=== PATIENT | female | born 1940 | race Caucasian/White ===

== ENCOUNTER 2016-02-11 10:45 | Emergency (ER) | payer OTHER ==
[~2016-02-11] VITALS: Ht 157.5 cm; Wt 90.7 kg
[~2016-02-11 10:45] MED LIST: ACETAMINOPHEN325 M1 PER TUBE; ACETAMINOPHEN325 M1 PO; ACETAMINOPHEN500 MG PER TUBE; AMBEREN; APAP500 PER TUBE; ATENOLOL 50MG T50 M1 PO; AUGMENTIN 875875 MG PO; BACLOFEN 10MG T10 M1 PER TUBE; BACLOFEN 10MG T10 M1 PO; C-500500 MG PER TUBE; CEFTIN500 MG PO; CIPROFLOXACIN500 M1 PO; CLEOCIN HCL150 MG PER TUBE; COLACE100 MG PO; CRANBERRY 4001 EAC1 PO; CRANBERRY500 M1 PER TUBE; DILANTIN100 MG PO; DITROPAN XL5 M1 PO; DUONEB 2.5-0.5 M3 ML IH; DUONEB 2.5-0.5 M3 ML INH; ECONAZOLE 1% CR30 G1 TP; FLAGYL500 MG PER TUBE; FLUZONE 2045 MCG/010; GUAIFENESIN-DM S5 ML PER TUBE; HYDROCERIN CREA1 JAR; HYDROCERIN CREA1 JAR TOP; IMODIUM ADVANC1 EAC1 PO; KEPPRA 100100 MG/M1 PER TUBE; KEPPRA 500 MG500 M1 PER TUBE; KEPPRA 500 MG500 M1 PO; KEPPRA1000 MG PER TUBE; LEVOTHYROXIN0.025 M1 PG; LEVOTHYROXIN0.025 MG PER TUBE; LEVOTHYROXIN0.025 MG PO; LEVOTHYROXINE0.05 MG PER TUBE; LIORESAL 10 MG10 MG PER TUBE; LISINOPRIL10 MG PO; LOPERAMIDE 2 MG2 M1 PER TUBE; LOPRESSOR 50 MG50 M1 PER TUBE; LOPRESSOR100 MG PO; LOPRESSOR50 PER TUBE; LORATIDINE 10 M10 M1 PER TUBE; MACROBID 100 M100 M2 PO; MERREM1 GM IVPB; METOPROLOL 100100 M1 PO; MILLTRIUM SENI1 EACH PO; MIRALAX17 GM PO; MIRALAX255 GM PO; MOM PER TUBE; MULTI-VITAMIN1 EAC1 PO; MULTIPLE VITAM1 EAC3 PO; MULTIVITAMINS PER TUBE; NEURONTIN 300300 M1 PO; NORVASC 5 MG TAB5 MG PER TUBE; NORVASC5 MG PER TUBE; NYSTATIN 100,0015 G1 TP; OXYBUTYNIN 5 MG5 M1 GT; OXYBUTYNIN 5 MG5 M1 PER TUBE; OXYBUTYNIN 5 MG5 M1 PO; OXYBUTYNIN 5 MG5 M2 PER TUBE; PAXIL10 MG; PERIDEX 0.12%473 M1; PNEUMOVAX25 MCG/0.5; REMERON15 M1 PO; REMERON15 MG PER TUBE; REMERON15 MG PO; ROBITUSSIN100 MG/5 M PO; SENNA CONCENTR8.6 MG PER TUBE; SENNA S TABLET1 EACH PER TUBE; SENNA S TABLET1 EACH PO; SILVADENE20 GM TP; SYNTHROID50 MCG PO; VALIUM5 MG PER TUBE; VANCOMYCIN125 MG/2.1 PER TUBE; VITAMIN C + RO500 MG PO; VITAMIN C120 GM; VITAMIN D 5050000 I1 PO; VITAMINC500 PER TUBE; VITAMINC500 PO; [UNRECOGNIZED DRUG - OTHER]; [UNRECOGNIZED DRUG - OTHER] TP
[2016-02-11 13:37] LABS: HEMATOCRIT 43.8 % (37.0-47.0); HEMOGLOBIN 14.3 gm/dL (12.0-15.0); MCHC 32.6 % (28.0-37.0); MCV 85.9 fL (80.0-100.0); PLATELET COUNT 244 thou/uL (150-400); RDW 17.6 % (10.5-14.5)
[2016-02-11 13:39] LABS: MANUAL DIFF YES
[2016-02-11 13:43] LABS: CALCIUM 9.5 mg/dL (8.5-10.1); CREATININE 0.6 mg/dL (0.6-1.3); POTASSIUM 4.6 mmol/L (3.5-5.1)
[2016-02-11 14:00] LABS: ABSOLUTE NEUTROPHILS 8.6 thou/uL (1.4-8.2); TOTAL CELL COUNT 100
[2016-02-11 14:01] LABS: ANISOCYTOSIS 1+; PLATELET ESTIMATE NORMAL
[2016-02-11] MEDS ORDERED: CLARITIN10 M2 PER TUBE (15:28)
[2016-02-11] MEDS ORDERED: PEPCID20 MG PER TUBE (15:28)
[2016-02-11] MEDS ORDERED: PREDNISONE 20 M20 MG PER TUBE (15:28)
[2016-02-11 17:52] VITALS: BP 109/52
== END 2016-02-11 17:55 | disposition home or self-care (01) ==
LOC: ER 10:45
PROVIDERS: Nurse Practitioner Family
DX: T78.40XA Allergy, unspecified, initial encounter (principal); X58.XXXA Exposure to other specified factors, initial encounter; Z88.8 Allergy status to other drugs, medicaments and biological substances; Z88.1 Allergy status to other antibiotic agents; Z91.018 Allergy to other foods; Z88.0 Allergy status to penicillin; Z91.013 Allergy to seafood